=== PATIENT | male | born 1995 | race Caucasian/White ===

== ENCOUNTER 2017-06-20 00:28 | Emergency (ER) | payer OTHER ==
[~2017-06-20] VITALS: Ht 195.6 cm; Wt 85.6 kg
[2017-06-20 01:34] VITALS: BP 119/67
== END 2017-06-20 01:34 | disposition home or self-care (01) ==
LOC: ED 01:30
DX: S00.83XA Contusion of other part of head, initial encounter (principal); X58.XXXA Exposure to other specified factors, initial encounter; Y93.67 Activity, basketball; Y92.39 Other specified sports and athletic area as the place of occurrence of the external cause; Y99.8 Other external cause status
CPT/HCPCS: 99281